=== PATIENT | female | born 1950 | race Caucasian/White ===

== ENCOUNTER 2022-07-05 04:14 | Inpatient (IN) | payer MEDICARE ==
[~2022-07-05] VITALS: Ht 175.3 cm; Wt 84.1 kg
[~2022-07-05 04:14] MED LIST: MEDROL 4MG DOSEP4 MG PO
[2022-07-05 04:47] LABS: BASOPHIL 0.1 % (0-2); EOSINOPHIL 0.5 % (0-7); HCT 42.8 % (37.0-47.0); HGB 13.8 g/dl (12.5-16.0); LYMPHOCYTE 13.3 % (15-48); MCH 32.8 pg (25.0-31.0); MCHC 32.2 g/dL (32.0-36.0); MCV 101.7 fL (78.0-100.0); MONOCYTE 3.1 % (0-12); MPV 9.7 fL (6.0-9.5); NEUTROPHIL 82.7 % (41-80); NRBC 0; PLT 267 K/uL (150-400); RBC 4.21 M/uL (4.20-5.40); RDW 13.3 % (11.5-14.0); WBC 13.5 K/uL (4.0-10.5)
[2022-07-05 04:50] LABS: INR 1.02 (0.9-1.2); PROTHROMBIN TIME 13.1 SECONDS (11.9-13.9); PTT 22.4 SECONDS (24.9-34.6)
[2022-07-05 05:03] LABS: ALBUMIN 3.8 g/dL (3.4-5.0); BILIRUBIN - TOTAL 0.5 mg/dL (0.2-1.0); BUN/CREAT RATIO (CALC) 27.7 RATIO; CREATININE 0.65 mg/dL (0.51-0.95); GLOBULIN (CALCULATION) 2.8 g/dL; POTASSIUM 3.5 mmol/L (3.5-5.1); TOTAL PROTEIN 6.6 g/dL (6.4-8.2)
[2022-07-05 12:48] LABS: BILIRUBIN NEGATIVE (NEGATIVE); BLOOD NEGATIVE Ery/uL (NEGATIVE); CLARITY CLEAR (CLEAR); COLOR YELLOW (YELLOW); GLUCOSE (U) NORMAL (NORMAL); LEUKOCYTES NEGATIVE Leu/uL (NEGATIVE); NITRITE NEGATIVE (NEGATIVE); PROTEIN NEGATIVE (NEGATIVE); SPECIFIC GRAVITY >=1.030 (1.001-1.030); UROBILINOGEN 0.2 mg/dL (0.2-1.0); pH 5.5 (5.0-9.0)
[2022-07-05 16:33] LABS: BUN/CREAT RATIO (CALC) 29.3 RATIO; CREATININE 0.58 mg/dL (0.51-0.95); MAGNESIUM 1.5 mg/dL (1.8-2.4); POTASSIUM 4.5 mmol/L (3.5-5.1)
[2022-07-05] MEDS ORDERED: STOMACH RELIEF262 MG PO (17:28)
[2022-07-05] MEDS ORDERED: BALSALAZIDE DI750 MG PO (17:29)
[2022-07-05] MEDS ORDERED: ALTOPREV20 MG PO (17:29)
[2022-07-05] MEDS ORDERED: PROTONIX 40MG T40 MG PO (17:30)
[2022-07-05] MEDS ORDERED: PAXIL40 MG PO (17:30)
[2022-07-05] MEDS ORDERED: RIZATRIPTAN10 M1 PO (17:31)
[2022-07-05] MEDS ORDERED: ZESTRIL5 MG PO (17:32)
[2022-07-05] MEDS ORDERED: FLONASE ALLER15.8 ML (17:32)
[2022-07-05] MEDS ORDERED: VISTARIL25 MG PO (17:34)
[2022-07-05 23:50] LABS: BILIRUBIN NEGATIVE (NEGATIVE); BLOOD NEGATIVE Ery/uL (NEGATIVE); COLOR YELLOW (YELLOW); GLUCOSE (U) NORMAL (NORMAL); LEUKOCYTES NEGATIVE Leu/uL (NEGATIVE); NITRITE NEGATIVE (NEGATIVE); PROTEIN NEGATIVE (NEGATIVE); SPECIFIC GRAVITY >=1.030 (1.001-1.030); UROBILINOGEN 0.2 mg/dL (0.2-1.0)
[2022-07-05 23:58] LABS: CLARITY CLOUDY (CLEAR)
[2022-07-05 23:59] LABS: AMORPHOUS URATES CRYSTALS LARGE
[2022-07-06 06:44] LABS: BASOPHIL 0.1 % (0-2); EOSINOPHIL 0 % (0-7); HGB 11.6 g/dl (12.5-16.0); LYMPHOCYTE 6.9 % (15-48); MCH 33.4 pg (25.0-31.0); MCHC 32.2 g/dL (32.0-36.0); MCV 103.7 fL (78.0-100.0); MONOCYTE 4.4 % (0-12); MPV 9.8 fL (6.0-9.5); NEUTROPHIL 87.9 % (41-80); NRBC 0; PLT 196 K/uL (150-400); RBC 3.47 M/uL (4.20-5.40); RDW 13.6 % (11.5-14.0); WBC 13.3 K/uL (4.0-10.5)
[2022-07-06 07:08] LABS: BUN/CREAT RATIO (CALC) 29.5 RATIO; CREATININE 0.61 mg/dL (0.51-0.95); PHOSPHORUS 3.4 mg/dL (2.6-4.7); POTASSIUM 4.6 mmol/L (3.5-5.1)
--- NOTE | 2022-07-07 00:52 | NUR ---
RN WENT IN TO PATIENT'S FOR HOURLY ROUNDING AND NOTICED THAT PATIENT PULLED OUT NG TUBE A SIGNIFICANT LENGTH. RN CALLED [employer]PERVIS[employer] WHO ORDERED CXR. CXR SHOWED THT NGT NEEDED TO BE REPLACED. ALISHA REPLACED NGT IN LEFT NARE. CHECKED POSITION WITH ANOTHER XRAY. PATIENT TOLERATED PLACEMENT. WILL CONTINUE TO MONITOR.
[2022-07-07 06:04] LABS: BASOPHIL 0.1 % (0-2); EOSINOPHIL 0.5 % (0-7); HCT 35.1 % (37.0-47.0); LYMPHOCYTE 11.9 % (15-48); MCH 32.7 pg (25.0-31.0); MCHC 31.3 g/dL (32.0-36.0); MCV 104.5 fL (78.0-100.0); MONOCYTE 6.7 % (0-12); MPV 9.7 fL (6.0-9.5); NEUTROPHIL 80.4 % (41-80); NRBC 0; PLT 205 K/uL (150-400); RBC 3.36 M/uL (4.20-5.40); RDW 13.5 % (11.5-14.0)
--- NOTE | 2022-07-07 06:10 | NUR ---
ALISHA CONTACTED R/T LOW GRADE TEMP. NO NEW ORDERS. WILL CONTINUE TO MONITOR.
[2022-07-07 06:47] LABS: CREATININE 0.68 mg/dL (0.51-0.95); MAGNESIUM 1.5 mg/dL (1.8-2.4); PHOSPHORUS 2.7 mg/dL (2.6-4.7); POTASSIUM 4.3 mmol/L (3.5-5.1)
--- NOTE | 2022-07-07 12:56 | NUR ---
07/07/22 Ms. Gaston was lethargic due to medications at the time of the assessment. She was oriented to self, , and place. Ms. Gaston lives alone. She has 02 at 2 L, portable, rw, 3in1, and s. chair. PCP = [facility]. She has her groceries delivered from [employer]. 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 Will continue to monitor.
--- NOTE | 2022-07-07 19:39 | NUR ---
07/07/221929 PATIENT CALLED RN TO ROOM, FOUND NG TUBE OUT OF PATIENT'S NARE LAYING ON HER CHEST. ISRAEL JESUS MADE AWARE AND DR. TAMAYO WAS CALLED. DR TAMAYO STATED TO LEAVE OUT NG TUBE AND TO MAKE PATIENT STRICT NPO. WILL CONTINUE TO MONITOR. -AMEYA,RN
--- NOTE | 2022-07-08 03:38 | NUR ---
PATIENT REFUSES TO HAVE GUTHRIE REMOVED. PATIENT STATES SHE WILL LET [facility] REMOVE GUTHRIE. -AMEYA,RN
[2022-07-08 07:44] LABS: HGB 11.8 g/dl (12.5-16.0); MCH 32.9 pg (25.0-31.0); MCHC 31.9 g/dL (32.0-36.0); MCV 103.1 fL (78.0-100.0); MPV 9.4 fL (6.0-9.5); RBC 3.59 M/uL (4.20-5.40); RDW 12.8 % (11.5-14.0); WBC 6.1 K/uL (4.0-10.5)
[2022-07-08 10:41] LABS: CREATININE 0.57 mg/dL (0.51-0.95)
[2022-07-08 10:43] LABS: POTASSIUM 4.1 mmol/L (3.5-5.1)
[2022-07-09 06:56] LABS: BASOPHIL 0 % (0-2); EOSINOPHIL 4.7 % (0-7); HGB 11.8 g/dl (12.5-16.0); LYMPHOCYTE 11.2 % (15-48); MCH 32.5 pg (25.0-31.0); MCHC 31.9 g/dL (32.0-36.0); MCV 101.9 fL (78.0-100.0); MONOCYTE 9.5 % (0-12); MPV 10.3 fL (6.0-9.5); NEUTROPHIL 73.5 % (41-80); NRBC 0; PLT 182 K/uL (150-400); RBC 3.63 M/uL (4.20-5.40); RDW 12.4 % (11.5-14.0); WBC 5.3 K/uL (4.0-10.5)
[2022-07-09 07:11] LABS: BUN/CREAT RATIO (CALC) 18.4 RATIO; CREATININE 0.49 mg/dL (0.51-0.95); MAGNESIUM 1.4 mg/dL (1.8-2.4); PHOSPHORUS 3.4 mg/dL (2.6-4.7)
[2022-07-11 01:49] LABS: BASOPHIL 0.2 % (0-2); EOSINOPHIL 3.7 % (0-7); HCT 36.4 % (37.0-47.0); HGB 11.7 g/dl (12.5-16.0); LYMPHOCYTE 18.1 % (15-48); MCH 32.5 pg (25.0-31.0); MCHC 32.1 g/dL (32.0-36.0); MCV 101.1 fL (78.0-100.0); MONOCYTE 12.2 % (0-12); MPV 9.4 fL (6.0-9.5); NEUTROPHIL 65.5 % (41-80); NRBC 0; PLT 215 K/uL (150-400); RDW 12.7 % (11.5-14.0); WBC 6.5 K/uL (4.0-10.5)
[2022-07-11 02:10] LABS: BUN/CREAT RATIO (CALC) 6.9 RATIO; CREATININE 0.72 mg/dL (0.51-0.95); MAGNESIUM 1.4 mg/dL (1.8-2.4); PHOSPHORUS 4.4 mg/dL (2.6-4.7); POTASSIUM 3.4 mmol/L (3.5-5.1)
[2022-07-12 07:27] LABS: BASOPHIL 0.2 % (0-2); EOSINOPHIL 3.5 % (0-7); HCT 34.1 % (37.0-47.0); HGB 11.1 g/dl (12.5-16.0); LYMPHOCYTE 15.1 % (15-48); MCH 32.9 pg (25.0-31.0); MCHC 32.6 g/dL (32.0-36.0); MCV 101.2 fL (78.0-100.0); MONOCYTE 10.5 % (0-12); MPV 9.7 fL (6.0-9.5); NEUTROPHIL 70.2 % (41-80); NRBC 0; PLT 218 K/uL (150-400); RBC 3.37 M/uL (4.20-5.40); WBC 6.5 K/uL (4.0-10.5)
[2022-07-12 07:42] LABS: BUN/CREAT RATIO (CALC) 4.9 RATIO; CREATININE 1.64 mg/dL (0.51-0.95); MAGNESIUM 1.9 mg/dL (1.8-2.4); POTASSIUM 3.6 mmol/L (3.5-5.1)
[2022-07-13 07:35] LABS: BASOPHIL 0.2 % (0-2); EOSINOPHIL 3.9 % (0-7); HCT 33.6 % (37.0-47.0); HGB 10.6 g/dl (12.5-16.0); LYMPHOCYTE 14.3 % (15-48); MCH 32.1 pg (25.0-31.0); MCHC 31.5 g/dL (32.0-36.0); MCV 101.8 fL (78.0-100.0); MONOCYTE 11.3 % (0-12); MPV 9.6 fL (6.0-9.5); NEUTROPHIL 69.7 % (41-80); NRBC 0; PLT 223 K/uL (150-400); RDW 13.1 % (11.5-14.0)
[2022-07-13 07:39] LABS: WBC 5.3 K/uL (4.0-10.5)
[2022-07-13 09:10] LABS: CREATININE 1.88 mg/dL (0.51-0.95); POTASSIUM 3.7 mmol/L (3.5-5.1)
[2022-07-14 07:30] LABS: BASOPHIL 0 % (0-2); EOSINOPHIL 4.3 % (0-7); HCT 33.3 % (37.0-47.0); HGB 10.6 g/dl (12.5-16.0); LYMPHOCYTE 11.9 % (15-48); MCH 32.5 pg (25.0-31.0); MCHC 31.8 g/dL (32.0-36.0); MCV 102.1 fL (78.0-100.0); MONOCYTE 11.7 % (0-12); MPV 9.8 fL (6.0-9.5); NEUTROPHIL 71.6 % (41-80); NRBC 0; PLT 207 K/uL (150-400); RBC 3.26 M/uL (4.20-5.40); WBC 4.4 K/uL (4.0-10.5)
[2022-07-14 08:11] LABS: BUN/CREAT RATIO (CALC) 4.5 RATIO; POTASSIUM 4.5 mmol/L (3.5-5.1)
[2022-07-14 12:39] LABS: BILIRUBIN NEGATIVE (NEGATIVE); BLOOD NEGATIVE Ery/uL (NEGATIVE); CLARITY CLEAR (CLEAR); COLOR YELLOW (YELLOW); GLUCOSE (U) NORMAL (NORMAL); LEUKOCYTES NEGATIVE Leu/uL (NEGATIVE); NITRITE NEGATIVE (NEGATIVE); PROTEIN NEGATIVE (NEGATIVE); SPECIFIC GRAVITY <=1.005 (1.001-1.030); UROBILINOGEN 0.2 mg/dL (0.2-1.0)
[2022-07-14 12:46] LABS: SQUAMOUS EPITHELIAL CELLS RARE
[2022-07-14 12:57] LABS: URINE CREATININE 32.31 mg/dL (29.00-226.00)
[2022-07-15 07:14] LABS: BASOPHIL 0 % (0-2); EOSINOPHIL 2.5 % (0-7); HCT 33.3 % (37.0-47.0); HGB 10.6 g/dl (12.5-16.0); LYMPHOCYTE 10.3 % (15-48); MCH 32.3 pg (25.0-31.0); MCHC 31.8 g/dL (32.0-36.0); MCV 101.5 fL (78.0-100.0); MPV 9.4 fL (6.0-9.5); NEUTROPHIL 76.8 % (41-80); NRBC 0; PLT 206 K/uL (150-400); RBC 3.28 M/uL (4.20-5.40); RDW 12.9 % (11.5-14.0); WBC 5.7 K/uL (4.0-10.5)
[2022-07-15 07:35] LABS: ALBUMIN 2.7 g/dL (3.4-5.0); BILIRUBIN - TOTAL 0.3 mg/dL (0.2-1.0); BUN/CREAT RATIO (CALC) 4.1 RATIO; CREATININE 1.95 mg/dL (0.51-0.95); GLOBULIN (CALCULATION) 3.4 g/dL; MAGNESIUM 1.6 mg/dL (1.8-2.4); PHOSPHORUS 3.9 mg/dL (2.6-4.7); POTASSIUM 4.4 mmol/L (3.5-5.1); TOTAL PROTEIN 6.1 g/dL (6.4-8.2)
--- NOTE | 2022-07-15 14:35 | NUR ---
07/15/22 Discharge is anticipated for 07/16. A referral was made to [facility] per pt choice. - Ms. Gaston reports that [facility] will provide homemaker services when staff is avaiable. [facility] also [facility]
[2022-07-16 07:13] LABS: HCT 33.5 % (37.0-47.0); HGB 10.7 g/dl (12.5-16.0); MCH 32.3 pg (25.0-31.0); MCHC 31.9 g/dL (32.0-36.0); MCV 101.2 fL (78.0-100.0); MPV 9.6 fL (6.0-9.5); RBC 3.31 M/uL (4.20-5.40); RDW 12.9 % (11.5-14.0); WBC 6.5 K/uL (4.0-10.5)
[2022-07-16 08:35] LABS: ALBUMIN 2.7 g/dL (3.4-5.0); BILIRUBIN - TOTAL 0.3 mg/dL (0.2-1.0); CREATININE 1.94 mg/dL (0.51-0.95); GLOBULIN (CALCULATION) 3.4 g/dL; MAGNESIUM 1.6 mg/dL (1.8-2.4); PHOSPHORUS 4.1 mg/dL (2.6-4.7); POTASSIUM 4.4 mmol/L (3.5-5.1); TOTAL PROTEIN 6.1 g/dL (6.4-8.2)
[2022-07-16] MEDS ORDERED: PANTOPRAZOLE SO40 MG PO (14:40)
[2022-07-16] MEDS ORDERED: DOXYCYCLINE MO100 MG PO (14:40)
[2022-07-16] MEDS ORDERED: SUCRALFATE1 GM PO (14:40)
[2022-07-16] MEDS ORDERED: MIRALAX17 GM PO (14:43)
[2022-07-16] MEDS ORDERED: OXY-IR 5MG5 MG PO (14:43)
== END 2022-07-16 17:53 | disposition home health service (06) | DRG 326 ==
LOC: FER 04:14 → FMS 08:00 → FAS 08:00 → FER 08:00 → FMS 08:00 → FOR 08:00 → FAS 13:21 → FMS 13:21 → FAS 07-16 17:53 → FMS 07-16 17:53
PROVIDERS: Internal Medicine; Internal Medicine Nephrology; Nurse Practitioner; Student in an Organized Health Care Education/Training Program; ADMIT Allergy & Immunology Allergy
PROC: 0DU707Z Supplement Stomach, Pylorus with Autologous Tissue Substitute, Open Approach (ICD-10-PCS; principal; 2022-07-05 08:58)
PROC: 0T9B70Z Drainage of Bladder with Drainage Device, Via Natural or Artificial Opening (ICD-10-PCS; 2022-07-10)
PROC: B24BZZZ Ultrasonography of Heart with Aorta (ICD-10-PCS; 2022-07-13)
DX: K25.1 Acute gastric ulcer with perforation (principal); J18.9 Pneumonia, unspecified organism; K65.9 Peritonitis, unspecified; J98.11 Atelectasis; N17.9 Acute kidney failure, unspecified; K50.90 Crohn's disease, unspecified, without complications; K56.7 Ileus, unspecified; K91.89 Other postprocedural complications and disorders of digestive system; Z20.822 Contact with and (suspected) exposure to COVID-19; M85.89 Other specified disorders of bone density and structure, multiple sites; F41.9 Anxiety disorder, unspecified; F32.A Depression, unspecified; Z88.2 Allergy status to sulfonamides; Z88.5 Allergy status to narcotic agent; Z90.710 Acquired absence of both cervix and uterus; Z98.1 Arthrodesis status; Z90.49 Acquired absence of other specified parts of digestive tract; Z79.82 Long term (current) use of aspirin; Z79.899 Other long term (current) drug therapy; Z80.3 Family history of malignant neoplasm of breast; F17.210 Nicotine dependence, cigarettes, uncomplicated; I10 Essential (primary) hypertension; J44.9 Chronic obstructive pulmonary disease, unspecified; Z28.310 Unvaccinated for COVID-19; G89.29 Other chronic pain
CPT/HCPCS: 36415; 71045; 74018; 74240; 76770; 80048; 80053; 80202; 81001; 81003; 82570; 83036; 83605; 83690; 83735; 83880; 84100; 84145; 84300; 84484; 85025; 85610; 85730; 86677; 87040; 87088; 93005; 94010; 94640; 97162; 97166; 97530; 97530-GP; 97535; C9113; J1100; J1170; J1450; J1644; J1940; J2060; J2405; J2543; J2550; J2704; J3010; J3370; J3475; J3480; J7030; J7050; J7120; Q9968; U0002